=== PATIENT | male | born 1985 | race Caucasian/White ===

== ENCOUNTER 2022-07-29 08:07 | Inpatient (IN) | payer OTHER ==
[~2022-07-29] VITALS: Ht 195.6 cm; Wt 138.6 kg
[2022-07-29] MEDS ORDERED: CefTRIAXone 2gm/D5W 50ml BAG 50 ML IV ONE (10:20)
[2022-07-29] MEDS ORDERED: vancomycin/NS 1 GM ADD-VANTAGE 250 ML IV ONE (10:20)
[2022-07-29] MEDS ORDERED: normal saline 1000ML IV soln IV ONE (10:20)
[2022-07-29 11:03] LABS: BASOPHILS % (AUTO) 0.2 % (0-1); EOSINOPHILS % (AUTO) 0.2 % (0-6); HEMATOCRIT 42.6 % (42.0-52.0); HEMOGLOBIN 14.6 g/dl (14.0-17.9); LYMPHOCYTES # (AUTO) 0.8 X10'3 (1.1-4.8); LYMPHOCYTES % (AUTO) 8.9 % (21-51); MEAN CORPUSCULAR HGB CONC 34.2 g/dL (33.0-36.5); MEAN CORPUSCULAR VOLUME 84.6 FL (78-98); MEAN PLATELET VOLUME 6.6 FL (7.4-10.4); MONOCYTES # (AUTO) 0.6 X10'3 (0-0.9); MONOCYTES % (AUTO) 7.1 % (2-12); NEUTROPHILS # (AUTO) 7.6 X10'3 (1.8-7.7); NEUTROPHILS % (AUTO) 83.6 % (42-75); PLATELET COUNT 241 X10'3 (140-440); RED BLOOD COUNT 5.04 X10'6 (4.70-6.10); RED CELL DISTRIBUTION WIDTH 13.7 % (11.5-14.5); WHITE BLOOD COUNT 9.1 X10'3 (4.5-11.0)
[2022-07-29 11:12] LABS: ALANINE AMINOTRANSFERASE 39 U/L (12-78); ALBUMIN 4.5 G/DL (3.4-5.0); ALBUMIN/GLOBULIN RATIO 1.1 (1.1-1.5); ALKALINE PHOSPHATASE 106 IU/L (46-116); ANION GAP 7 (8-16); ASPARTATE AMINO TRANSFERASE 51 U/L (10-37); BILIRUBIN,TOTAL 0.8 MG/DL (0.1-1.0); BLOOD UREA NITROGEN 15 MG/DL (7-18); BUN/CREATININE RATIO 15.3 (5.4-32.0); C-REACTIVE PROTEIN 0.64 MG/DL (0.0-0.5); CALCIUM 9.7 MG/DL (8.5-10.1); CHLORIDE 103 MMOL/L (99-107); CREATININE 0.98 MG/DL (0.60-1.10); GLUCOSE 115 MG/DL (70-104); POTASSIUM 3.9 MMOL/L (3.5-5.1); SODIUM 139 MMOL/L (135-145); TOTAL CARBON DIOXIDE 28.7 MMOL/L (24-32); TOTAL PROTEIN 8.5 G/DL (6.4-8.2); eGFR 87 ML/MIN
[2022-07-29 14:26] LABS: CLARITY,URINE CLEAR (Clear); COLOR,URINE YELLOW (Yellow); GLUCOSE, URINE NEGATIVE (Neg); KETONES,URINE NEGATIVE (Neg); LEUKOCYTE ESTERASE ,URINE NEGATIVE (Neg); NITRITES, URINE NEGATIVE (Neg); OCCULT BLOOD,URINE NEGATIVE (Neg); PROTEIN,URINE NEGATIVE (Neg); UROBILINOGEN,URINE 0.2 E.U/dL (0.2-1.0)
[2022-07-29 14:32] LABS: UA COLLECTION TYPE CLN CATCH MIDSTREAM
[2022-07-29] MEDS ORDERED: bisacodyl 10mg suppository rectal RC PRN (16:20)
[2022-07-29] MEDS ORDERED: metoclopramide 5 mg/ml inj IV PRN (16:20)
[2022-07-29] MEDS ORDERED: potassium Cl 20 mEq SR tablet PO PRN ×2 (16:20)
[2022-07-29] MEDS ORDERED: magnesium 4gm in 100ml NS 100 ML IV PRN (16:20)
[2022-07-29] MEDS ORDERED: magnesium hydroxide 30ml (MOM) UD suspension PO PRN (16:20)
[2022-07-29] MEDS ORDERED: HYDROcodone/acetaminophen 5mg/325mg tablet PO PRN (16:20)
[2022-07-29] MEDS ORDERED: HYDROcodone/acetaminophen 10/325mg tab PO PRN (16:20)
[2022-07-29] MEDS ORDERED: potassium Cl 40MEQ/1/2NS 520ml 520 ML IV PRN (16:20)
[2022-07-29] MEDS ORDERED: magnesium Cl slow-release 64mg tablet PO PRN (16:20)
[2022-07-29] MEDS ORDERED: acetaminophen 325mg tablet PO PRN ×2 (16:20)
[2022-07-29] MEDS ORDERED: ondansetron/PF 4mg/2ml inj IV PRN (16:20)
[2022-07-29] MEDS ORDERED: ondansetron 4mg rapidly disintigrating tab PO PRN (16:20)
[2022-07-29] MEDS ORDERED: mag hydrox/Alum hydrox/simeth 30ml oral suspension PO PRN (16:20)
[2022-07-29] MEDS ORDERED: HYDR-3964 PO (16:32)
[2022-07-29] MEDS ORDERED: METH4TAB81 PO (16:32)
[2022-07-29] MEDS ORDERED: CLIN150C99 PO (16:32)
[2022-07-29] MEDS ORDERED: clindamycin 600mg/D5W 50ml 50 ML IV ONE (16:45)
[2022-07-29] MEDS ORDERED: ketorolac trometh. 30mg/ml inj. IV ONE (17:30)
[2022-07-29] MEDS ORDERED: HYDROcodone/acetaminophen 5mg/325mg tablet PO ONE (17:30)
[2022-07-29] MEDS ORDERED: TETanus/Pertussis (Acell)/Diphther VAC/PF (Tdap-Adult) 0.5ml syringe IMVAC ONE (18:00)
[2022-07-29] MEDS: K and/or MAG REPLACEMENT MC SCH (20:00)
[2022-07-29] MEDS: docusate sod 100mg capsule PO SCH (20:00)
[2022-07-29] MEDS ORDERED: temazepam 15mg capsule PO PRN (21:00)
[2022-07-29] MEDS: vancomycin/NS 1 GM ADD-VANTAGE 250 ML IV SCH (21:07)
[2022-07-29] MEDS: clindamycin 600mg/D5W 50ml 50 ML IV SCH (21:08)
--- NOTE | 2022-07-29 21:40 | NUR ---
patient placed on a hospital bed no needs at this time
[2022-07-30] MEDS: clindamycin 600mg/D5W 50ml 50 ML IV SCH ×4 (02:13→20:47)
[2022-07-30] MEDS ORDERED: ketorolac trometh. 30mg/ml inj. IV ONE (04:10)
[2022-07-30] MEDS: vancomycin/NS 1 GM ADD-VANTAGE 250 ML IV SCH ×2 (04:30→12:42)
[2022-07-30 04:33] LABS: BASOPHILS # (AUTO) 0.1 X10'3 (0-0.2); BASOPHILS % (AUTO) 1.5 % (0-1); EOSINOPHILS # (AUTO) 0.1 X10'3 (0-0.9); EOSINOPHILS % (AUTO) 1.5 % (0-6); HEMATOCRIT 40.2 % (42.0-52.0); HEMOGLOBIN 13.5 g/dl (14.0-17.9); LYMPHOCYTES # (AUTO) 0.9 X10'3 (1.1-4.8); LYMPHOCYTES % (AUTO) 10.5 % (21-51); MEAN CORPUSCULAR HEMOGLOBIN 28.6 PG (27.0-31.0); MEAN CORPUSCULAR HGB CONC 33.7 g/dL (33.0-36.5); MEAN CORPUSCULAR VOLUME 84.9 FL (78-98); MEAN PLATELET VOLUME 6.5 FL (7.4-10.4); MONOCYTES # (AUTO) 0.7 X10'3 (0-0.9); MONOCYTES % (AUTO) 7.8 % (2-12); NEUTROPHILS # (AUTO) 7.1 X10'3 (1.8-7.7); NEUTROPHILS % (AUTO) 78.7 % (42-75); PLATELET COUNT 226 X10'3 (140-440); RED BLOOD COUNT 4.73 X10'6 (4.70-6.10); RED CELL DISTRIBUTION WIDTH 13.6 % (11.5-14.5)
[2022-07-30 04:44] LABS: ALANINE AMINOTRANSFERASE 37 U/L (12-78); ALBUMIN 4.1 G/DL (3.4-5.0); ALBUMIN/GLOBULIN RATIO 1.1 (1.1-1.5); ALKALINE PHOSPHATASE 95 IU/L (46-116); ANION GAP 8 (8-16); ASPARTATE AMINO TRANSFERASE 33 U/L (10-37); BILIRUBIN,TOTAL 1.2 MG/DL (0.1-1.0); BLOOD UREA NITROGEN 13 MG/DL (7-18); BUN/CREATININE RATIO 13.7 (5.4-32.0); CALCIUM 9.2 MG/DL (8.5-10.1); CHLORIDE 104 MMOL/L (99-107); CREATININE 0.95 MG/DL (0.60-1.10); GLUCOSE 94 MG/DL (70-104); MAGNESIUM 2.2 MG/DL (1.5-2.4); SODIUM 139 MMOL/L (135-145); TOTAL CARBON DIOXIDE 27.4 MMOL/L (24-32); TOTAL PROTEIN 7.9 G/DL (6.4-8.2); eGFR 90 ML/MIN
[2022-07-30] MEDS: K and/or MAG REPLACEMENT MC SCH ×2 (08:00→20:00)
[2022-07-30] MEDS: enoxaparin 40mg/0.4ml syringe SUBCUT SCH (08:00)
[2022-07-30] MEDS ORDERED: CefTRIAXone/D5W-Rocephin 1gm 50 ML IV SCH (08:00)
[2022-07-30] MEDS: docusate sod 100mg capsule PO SCH ×2 (08:00→20:46)
[2022-07-30 09:45] VITALS: BP 148/88
[2022-07-30] MEDS ORDERED: VANCOMYCIN LEVEL IV ONE (11:30)
[2022-07-30] MEDS: ketorolac tromethamine 15mg/ml inj. IV SCH ×2 (13:40→20:46)
[2022-07-30] MEDS ORDERED: amLODIPine 5mg tablet PO ONE (16:40)
[2022-07-30 18:00] VITALS: BP 150/88
[2022-07-30] MEDS: VANCOMYCIN 1,500MG in normal saline IV soln 300 ML IV SCH (20:00)
[2022-07-30 22:00] VITALS: BP 151/86
[2022-07-31] MEDS: ketorolac tromethamine 15mg/ml inj. IV SCH ×4 (02:06→20:50)
[2022-07-31] MEDS: clindamycin 600mg/D5W 50ml 50 ML IV SCH ×3 (02:06→16:24)
[2022-07-31] MEDS: VANCOMYCIN 1,500MG in normal saline IV soln 300 ML IV SCH ×3 (04:16→20:50)
[2022-07-31 05:07] LABS: BASOPHILS % (AUTO) 0.5 % (0-1); EOSINOPHILS # (AUTO) 0.2 X10'3 (0-0.9); EOSINOPHILS % (AUTO) 2.7 % (0-6); HEMATOCRIT 37.4 % (42.0-52.0); HEMOGLOBIN 13.1 g/dl (14.0-17.9); LYMPHOCYTES % (AUTO) 17.1 % (21-51); MEAN CORPUSCULAR HEMOGLOBIN 29.5 PG (27.0-31.0); MEAN CORPUSCULAR VOLUME 84.2 FL (78-98); MEAN PLATELET VOLUME 6.2 FL (7.4-10.4); MONOCYTES # (AUTO) 0.7 X10'3 (0-0.9); MONOCYTES % (AUTO) 11.4 % (2-12); NEUTROPHILS % (AUTO) 68.3 % (42-75); PLATELET COUNT 189 X10'3 (140-440); RED BLOOD COUNT 4.45 X10'6 (4.70-6.10); RED CELL DISTRIBUTION WIDTH 13.5 % (11.5-14.5); WHITE BLOOD COUNT 5.9 X10'3 (4.5-11.0)
[2022-07-31 05:22] LABS: ALANINE AMINOTRANSFERASE 29 U/L (12-78); ALBUMIN 3.5 G/DL (3.4-5.0); ALKALINE PHOSPHATASE 84 IU/L (46-116); ANION GAP 7 (8-16); ASPARTATE AMINO TRANSFERASE 20 U/L (10-37); BILIRUBIN,TOTAL 0.9 MG/DL (0.1-1.0); BLOOD UREA NITROGEN 12 MG/DL (7-18); BUN/CREATININE RATIO 12.4 (5.4-32.0); CALCIUM 8.9 MG/DL (8.5-10.1); CHLORIDE 106 MMOL/L (99-107); CREATININE 0.97 MG/DL (0.60-1.10); GLUCOSE 99 MG/DL (70-104); MAGNESIUM 2.2 MG/DL (1.5-2.4); POTASSIUM 3.8 MMOL/L (3.5-5.1); SODIUM 141 MMOL/L (135-145); TOTAL CARBON DIOXIDE 28.5 MMOL/L (24-32); TOTAL PROTEIN 7.1 G/DL (6.4-8.2); eGFR 88 ML/MIN
--- NOTE | 2022-07-31 06:48 | NUR ---
Patient in room [facility]. I have received report from KEZIA RN and had the opportunity to ask questions and assume patient care.
[2022-07-31 06:56] VITALS: BP 131/77
[2022-07-31] MEDS: K and/or MAG REPLACEMENT MC SCH ×2 (08:00→20:44)
[2022-07-31] MEDS: enoxaparin 40mg/0.4ml syringe SUBCUT SCH (08:00)
[2022-07-31] MEDS: CefTRIAXone 2gm/D5W 50ml BAG 50 ML IV SCH (09:06)
[2022-07-31] MEDS: amLODIPine 5mg tablet PO SCH (09:08)
[2022-07-31] MEDS: docusate sod 100mg capsule PO SCH ×2 (09:08→20:00)
[2022-07-31 11:53] VITALS: BP 127/79
--- NOTE | 2022-07-31 12:37 | NUR ---
PAGER ID: [phone] MESSAGE: FARIHA SURG [id number] RE: PATIENT IS HAVING SOME DRAINAGE IN THE MOUTH AT UPPER FRENULUM IN MOUTH. WOULD YOU LIKE ME TO SWAB AND SEND IT DOWN FOR CULTURE? THANKS
[2022-07-31 18:00] VITALS: BP 131/85
--- NOTE | 2022-07-31 18:33 | NUR ---
Problems reprioritized. Patient report given, questions answered & plan of care reviewed with PRUDENCE RN.
[2022-07-31] MEDS ORDERED: GADOTERATE MEGLUMINE 7.5 MMOL/15 ML VIAL IV ONE (18:41)
--- NOTE | 2022-07-31 19:15 | NUR ---
Patient in room [facility]. I have received report from FARIHA ALMAZAN and had the opportunity to ask questions and assume patient care.
[2022-07-31] MEDS ORDERED: VANCOMYCIN LEVEL IV ONE (19:30)
[2022-07-31] MEDS: clindamycin 150mg capsule PO SCH (21:07)
[2022-07-31 22:00] VITALS: BP 131/87
[2022-08-01] MEDS: clindamycin 150mg capsule PO SCH ×2 (02:06→10:16)
[2022-08-01] MEDS: ketorolac tromethamine 15mg/ml inj. IV SCH ×2 (02:06→10:22)
[2022-08-01] MEDS: VANCOMYCIN 1,500MG in normal saline IV soln 300 ML IV SCH ×3 (04:46→20:54)
[2022-08-01 06:26] LABS: BASOPHILS % (AUTO) 0.4 % (0-1); EOSINOPHILS # (AUTO) 0.3 X10'3 (0-0.9); EOSINOPHILS % (AUTO) 5.1 % (0-6); HEMATOCRIT 37.9 % (42.0-52.0); HEMOGLOBIN 12.9 g/dl (14.0-17.9); LYMPHOCYTES # (AUTO) 0.9 X10'3 (1.1-4.8); LYMPHOCYTES % (AUTO) 17.5 % (21-51); MEAN CORPUSCULAR HEMOGLOBIN 28.7 PG (27.0-31.0); MEAN CORPUSCULAR VOLUME 84.4 FL (78-98); MEAN PLATELET VOLUME 6.3 FL (7.4-10.4); MONOCYTES # (AUTO) 0.5 X10'3 (0-0.9); MONOCYTES % (AUTO) 10.1 % (2-12); NEUTROPHILS # (AUTO) 3.3 X10'3 (1.8-7.7); NEUTROPHILS % (AUTO) 66.9 % (42-75); PLATELET COUNT 211 X10'3 (140-440); RED BLOOD COUNT 4.49 X10'6 (4.70-6.10); RED CELL DISTRIBUTION WIDTH 13.6 % (11.5-14.5); WHITE BLOOD COUNT 4.9 X10'3 (4.5-11.0)
--- NOTE | 2022-08-01 06:34 | NUR ---
Problems reprioritized. Patient report given, questions answered & plan of care reviewed with FARIHA RN.
[2022-08-01 06:46] LABS: ANION GAP 8 (8-16); BLOOD UREA NITROGEN 13 MG/DL (7-18); BUN/CREATININE RATIO 13.7 (5.4-32.0); CHLORIDE 106 MMOL/L (99-107); CREATININE 0.95 MG/DL (0.60-1.10); GLUCOSE 98 MG/DL (70-104); MAGNESIUM 2.4 MG/DL (1.5-2.4); POTASSIUM 4.3 MMOL/L (3.5-5.1); SODIUM 142 MMOL/L (135-145); TOTAL CARBON DIOXIDE 28.4 MMOL/L (24-32); eGFR 90 ML/MIN
[2022-08-01 06:47] LABS: ALANINE AMINOTRANSFERASE 32 U/L (12-78); ALBUMIN 3.5 G/DL (3.4-5.0); ALKALINE PHOSPHATASE 84 IU/L (46-116); ASPARTATE AMINO TRANSFERASE 15 U/L (10-37); BILIRUBIN,TOTAL 0.8 MG/DL (0.1-1.0); TOTAL PROTEIN 7.1 G/DL (6.4-8.2)
--- NOTE | 2022-08-01 06:47 | NUR ---
Patient in room [facility]. I have received report from VERONICA ALMAZAN and had the opportunity to ask questions and assume patient care.
[2022-08-01 06:58] VITALS: BP 115/75
[2022-08-01] MEDS: enoxaparin 40mg/0.4ml syringe SUBCUT SCH ×2 (08:00→10:23)
[2022-08-01] MEDS: K and/or MAG REPLACEMENT MC SCH ×2 (08:00→20:50)
[2022-08-01 10:00] VITALS: BP 137/84
[2022-08-01] MEDS: CefTRIAXone 2gm/D5W 50ml BAG 50 ML IV SCH (10:13)
[2022-08-01] MEDS: docusate sod 100mg capsule PO SCH ×2 (10:14→20:54)
[2022-08-01] MEDS: amLODIPine 5mg tablet PO SCH (10:14)
[2022-08-01] MEDS ORDERED: ibuprofen tablet 400 MG TABLET PO PRN (10:55)
[2022-08-01 18:00] VITALS: BP 147/87
--- NOTE | 2022-08-01 18:28 | NUR ---
Problems reprioritized. Patient report given, questions answered & plan of care reviewed with Prudence RN.
--- NOTE | 2022-08-01 18:53 | NUR ---
Patient in room [facility]. I have received report from FARIHA ALMAZAN and had the opportunity to ask questions and assume patient care.
[2022-08-01 22:00] VITALS: BP 136/81
[2022-08-02] MEDS: VANCOMYCIN 1,500MG in normal saline IV soln 300 ML IV SCH ×3 (04:30→21:02)
--- NOTE | 2022-08-02 06:16 | NUR ---
Problems reprioritized. Patient report given, questions answered & plan of care reviewed with FARIHA RN.
--- NOTE | 2022-08-02 06:25 | NUR ---
Patient in room [facility]. I have received report from VERONICA ALMAZAN and had the opportunity to ask questions and assume patient care.
[2022-08-02 06:31] VITALS: BP 120/77
[2022-08-02 06:44] LABS: BASOPHILS % (AUTO) 0.7 % (0-1); EOSINOPHILS # (AUTO) 0.3 X10'3 (0-0.9); EOSINOPHILS % (AUTO) 5.1 % (0-6); HEMATOCRIT 36.5 % (42.0-52.0); HEMOGLOBIN 12.5 g/dl (14.0-17.9); LYMPHOCYTES % (AUTO) 19.9 % (21-51); MEAN CORPUSCULAR HEMOGLOBIN 28.9 PG (27.0-31.0); MEAN CORPUSCULAR HGB CONC 34.2 g/dL (33.0-36.5); MEAN CORPUSCULAR VOLUME 84.5 FL (78-98); MEAN PLATELET VOLUME 5.9 FL (7.4-10.4); MONOCYTES # (AUTO) 0.5 X10'3 (0-0.9); MONOCYTES % (AUTO) 10.5 % (2-12); NEUTROPHILS # (AUTO) 3.3 X10'3 (1.8-7.7); NEUTROPHILS % (AUTO) 63.8 % (42-75); PLATELET COUNT 210 X10'3 (140-440); RED BLOOD COUNT 4.33 X10'6 (4.70-6.10); RED CELL DISTRIBUTION WIDTH 13.1 % (11.5-14.5); WHITE BLOOD COUNT 5.1 X10'3 (4.5-11.0)
[2022-08-02 07:03] LABS: ALANINE AMINOTRANSFERASE 27 U/L (12-78); ALBUMIN 3.4 G/DL (3.4-5.0); ALBUMIN/GLOBULIN RATIO 0.9 (1.1-1.5); ALKALINE PHOSPHATASE 76 IU/L (46-116); ANION GAP 7 (8-16); ASPARTATE AMINO TRANSFERASE 14 U/L (10-37); BILIRUBIN,TOTAL 0.6 MG/DL (0.1-1.0); BLOOD UREA NITROGEN 11 MG/DL (7-18); BUN/CREATININE RATIO 11.6 (5.4-32.0); CALCIUM 8.9 MG/DL (8.5-10.1); CHLORIDE 107 MMOL/L (99-107); CREATININE 0.95 MG/DL (0.60-1.10); GLUCOSE 100 MG/DL (70-104); MAGNESIUM 2.2 MG/DL (1.5-2.4); POTASSIUM 4.2 MMOL/L (3.5-5.1); SODIUM 141 MMOL/L (135-145); TOTAL CARBON DIOXIDE 27.2 MMOL/L (24-32); TOTAL PROTEIN 7.1 G/DL (6.4-8.2); eGFR 90 ML/MIN
[2022-08-02] MEDS: K and/or MAG REPLACEMENT MC SCH ×2 (08:00→20:00)
[2022-08-02] MEDS: enoxaparin 40mg/0.4ml syringe SUBCUT SCH (08:00)
[2022-08-02] MEDS: CefTRIAXone 2gm/D5W 50ml BAG 50 ML IV SCH (09:49)
[2022-08-02] MEDS: docusate sod 100mg capsule PO SCH ×2 (09:49→20:00)
[2022-08-02] MEDS: amLODIPine 5mg tablet PO SCH (09:52)
[2022-08-02] MEDS ORDERED: LORazepam 1 MG tablet PO PRN (10:20)
[2022-08-02] MEDS: ibuprofen 200mg tablet PO SCH (16:00)
[2022-08-02 17:48] VITALS: BP 129/82
[2022-08-02 18:00] VITALS: BP 136/84
--- NOTE | 2022-08-02 18:50 | NUR ---
Problems reprioritized. Patient report given, questions answered & plan of care reviewed with Fifi ALMAZAN.
--- NOTE | 2022-08-02 18:51 | NUR ---
Patient in room [facility]. I have received report from NORAH Christensen and had the opportunity to ask questions and assume patient care. Patient up to bathroom w/o problem, reports no concerns at this time. I will continue to monitor.
[2022-08-02 22:00] VITALS: BP 130/81
[2022-08-03] MEDS: VANCOMYCIN 1,500MG in normal saline IV soln 300 ML IV SCH (05:04)
[2022-08-03 05:59] LABS: BASOPHILS % (AUTO) 0.5 % (0-1); EOSINOPHILS # (AUTO) 0.2 X10'3 (0-0.9); EOSINOPHILS % (AUTO) 3.4 % (0-6); HEMATOCRIT 38.7 % (42.0-52.0); HEMOGLOBIN 13.2 g/dl (14.0-17.9); LYMPHOCYTES # (AUTO) 1.2 X10'3 (1.1-4.8); LYMPHOCYTES % (AUTO) 19.3 % (21-51); MEAN CORPUSCULAR HEMOGLOBIN 28.8 PG (27.0-31.0); MEAN CORPUSCULAR HGB CONC 34.1 g/dL (33.0-36.5); MEAN CORPUSCULAR VOLUME 84.4 FL (78-98); MEAN PLATELET VOLUME 6.5 FL (7.4-10.4); MONOCYTES # (AUTO) 0.7 X10'3 (0-0.9); MONOCYTES % (AUTO) 11.4 % (2-12); NEUTROPHILS # (AUTO) 3.9 X10'3 (1.8-7.7); NEUTROPHILS % (AUTO) 65.4 % (42-75); PLATELET COUNT 235 X10'3 (140-440); RED BLOOD COUNT 4.58 X10'6 (4.70-6.10); RED CELL DISTRIBUTION WIDTH 13.4 % (11.5-14.5)
[2022-08-03 06:15] LABS: ALANINE AMINOTRANSFERASE 29 U/L (12-78); ALBUMIN 3.6 G/DL (3.4-5.0); ALBUMIN/GLOBULIN RATIO 0.9 (1.1-1.5); ALKALINE PHOSPHATASE 83 IU/L (46-116); ANION GAP 7 (8-16); ASPARTATE AMINO TRANSFERASE 19 U/L (10-37); BILIRUBIN,TOTAL 0.6 MG/DL (0.1-1.0); BLOOD UREA NITROGEN 8 MG/DL (7-18); BUN/CREATININE RATIO 8.5 (5.4-32.0); CALCIUM 9.2 MG/DL (8.5-10.1); CHLORIDE 104 MMOL/L (99-107); CREATININE 0.94 MG/DL (0.60-1.10); GLUCOSE 103 MG/DL (70-104); POTASSIUM 4.3 MMOL/L (3.5-5.1); SODIUM 139 MMOL/L (135-145); TOTAL CARBON DIOXIDE 28.1 MMOL/L (24-32); TOTAL PROTEIN 7.4 G/DL (6.4-8.2); eGFR > 90 ML/MIN
--- NOTE | 2022-08-03 06:18 | NUR ---
Problems reprioritized. Patient report given, questions answered & plan of care reviewed with NORAH Linn.
[2022-08-03 07:00] VITALS: BP 128/86
[2022-08-03] MEDS: ibuprofen 200mg tablet PO SCH ×2 (08:00)
[2022-08-03] MEDS: enoxaparin 40mg/0.4ml syringe SUBCUT SCH (08:00)
[2022-08-03] MEDS: docusate sod 100mg capsule PO SCH (08:00)
[2022-08-03] MEDS: K and/or MAG REPLACEMENT MC SCH (08:50)
[2022-08-03] MEDS: amLODIPine 5mg tablet PO SCH (08:57)
[2022-08-03] MEDS: CefTRIAXone 2gm/D5W 50ml BAG 50 ML IV SCH (08:57)
[2022-08-03 11:00] VITALS: BP 125/76
--- NOTE | 2022-08-03 13:04 | NUR ---
[address] is wanting the LUE scanned urgently
[2022-08-03] MEDS ORDERED: CEFD300C3 PO (14:46)
[2022-08-03] MEDS ORDERED: NOR5T PO (14:46)
[2022-08-03] MEDS ORDERED: METR-159 PO (14:46)
--- NOTE | 2022-08-03 14:58 | NUR ---
Discontinued IV after, am antibiotic. Addendum: 08/03/22 at 1501 by Temitope Jones RN Amended: Links added.
== END 2022-08-03 16:10 | disposition home or self-care (01) | DRG 158 ==
LOC: ER 08:07 → ED HOLD 16:23 → SUR 3N 07-30 08:09
PROVIDERS: ADMIT Family Medicine; ATTEND Family Medicine
PROC: 3E0234Z Introduction of Serum, Toxoid and Vaccine into Muscle, Percutaneous Approach (ICD-10-PCS; principal; 2022-07-29)
DX: K04.7 Periapical abscess without sinus (principal); I82.612 Acute embolism and thrombosis of superficial veins of left upper extremity; K12.2 Cellulitis and abscess of mouth; L03.211 Cellulitis of face; E66.01 Morbid (severe) obesity due to excess calories; K05.10 Chronic gingivitis, plaque induced; F41.1 Generalized anxiety disorder; F90.9 Attention-deficit hyperactivity disorder, unspecified type; F32.A Depression, unspecified; I10 Essential (primary) hypertension; Z68.36 Body mass index [BMI] 36.0-36.9, adult; Z88.0 Allergy status to penicillin; Z23 Encounter for immunization; Z88.1 Allergy status to other antibiotic agents; Z79.899 Other long term (current) drug therapy
CPT/HCPCS: 36415; 70486; 70543; 80053; 80202; 81003; 83605; 83735; 84145; 85025; 85651; 86140; 87040; 87070; 87081; 90715; 99285; A9575; G0378; J0696; J1650; J1885; J3370; J3490; J7030; J7040